=== PATIENT | female | born 1965 | race Caucasian/White ===

== ENCOUNTER → 2024-01-07 11:19 | Outpatient (REF) | payer OTHER, SELFPAY | LOC: WDC 11:19 | PROVIDERS: ATTENDING PHYSICIAN Internal Medicine | DX: Z12.31 Encounter for screening mammogram for malignant neoplasm of breast (principal) | CPT/HCPCS: 77063; 77067 ==

== ENCOUNTER → 2024-02-12 06:17 | Day surgery (SDC) | payer OTHER, SELFPAY | LOC: GI 06:17 | PROVIDERS: ATTENDING PHYSICIAN Internal Medicine Gastroenterology; FAMILY PHYSICIAN Internal Medicine | DX: Z12.11 Encounter for screening for malignant neoplasm of colon (principal); K57.30 Diverticulosis of large intestine without perforation or abscess without bleeding; D12.3 Benign neoplasm of transverse colon; D12.0 Benign neoplasm of cecum; D12.4 Benign neoplasm of descending colon; D12.5 Benign neoplasm of sigmoid colon; D12.8 Benign neoplasm of rectum; D12.2 Benign neoplasm of ascending colon | CPT/HCPCS: 45385; 88305 ==

== ENCOUNTER → 2024-11-18 07:16 | Outpatient (REF) | payer OTHER, SELFPAY | LOC: RAD 07:16 | PROVIDERS: ATTENDING PHYSICIAN Internal Medicine | DX: R74.8 Abnormal levels of other serum enzymes (principal) | CPT/HCPCS: 76700 ==

== ENCOUNTER → 2025-01-12 10:49 | Outpatient (REF) | payer OTHER, SELFPAY | LOC: WDC 10:49 | PROVIDERS: ATTENDING PHYSICIAN Radiology Radiation Oncology; FAMILY PHYSICIAN Internal Medicine | DX: Z12.31 Encounter for screening mammogram for malignant neoplasm of breast (principal); Z85.3 Personal history of malignant neoplasm of breast | CPT/HCPCS: 77063; 77067 ==

== ENCOUNTER → 2025-01-26 09:13 | Outpatient (REF) | payer OTHER, SELFPAY | LOC: RAD 09:13 | PROVIDERS: ATTENDING PHYSICIAN Student in an Organized Health Care Education/Training Program; FAMILY PHYSICIAN Internal Medicine; REFERRING PHYSICIAN Student in an Organized Health Care Education/Training Program | DX: C50.811 Malignant neoplasm of overlapping sites of right female breast (principal); Z17.0 Estrogen receptor positive status [ER+] | CPT/HCPCS: 77080 ==

== ENCOUNTER 2025-02-07 06:23 | Day surgery (SDC) | payer OTHER, SELFPAY | END 2025-02-07 12:17 | disposition home or self-care (01) | LOC: GI 06:23 | PROVIDERS: ATTENDING PHYSICIAN Internal Medicine Gastroenterology; FAMILY PHYSICIAN Internal Medicine | DX: Z09 Encounter for follow-up examination after completed treatment for conditions other than malignant neoplasm (principal); K57.30 Diverticulosis of large intestine without perforation or abscess without bleeding; D12.5 Benign neoplasm of sigmoid colon; D12.0 Benign neoplasm of cecum; D12.2 Benign neoplasm of ascending colon; Z86.0101 Personal history of adenomatous and serrated colon polyps | CPT/HCPCS: 45385; 88305 ==

== ENCOUNTER → 2025-03-04 10:44 | Outpatient (REF) | payer OTHER, SELFPAY | LOC: WDC 10:44 | PROVIDERS: ATTENDING PHYSICIAN Radiology Radiation Oncology; FAMILY PHYSICIAN Internal Medicine | DX: R92.2 Inconclusive mammogram (principal) | CPT/HCPCS: 76641 ==

== ENCOUNTER → 2025-03-30 15:47 | Outpatient (REF) | payer OTHER, SELFPAY | LOC: RAD 15:47 | PROVIDERS: ATTENDING PHYSICIAN Student in an Organized Health Care Education/Training Program; FAMILY PHYSICIAN Internal Medicine | DX: R31.0 Gross hematuria (principal); N20.0 Calculus of kidney; R74.8 Abnormal levels of other serum enzymes; R76.8 Other specified abnormal immunological findings in serum; Z71.2 Person consulting for explanation of examination or test findings; R80.9 Proteinuria, unspecified; Z85.3 Personal history of malignant neoplasm of breast | CPT/HCPCS: 76770 ==

== ENCOUNTER 2025-04-12 07:18 | Outpatient (REF) | payer OTHER, SELFPAY ==
[2025-04-12] VITALS (9 sets, daily range): BP systolic 87–148; BP diastolic 66–93
[2025-04-12 07:55] LABS: Hemoglobin 11.2 g/dL (12.0-16.0); Mean Corp Hgb Conc. 32.9 g/dL (33.0-37.0); Mean Corpuscular Hgb 31.3 pg (27.0-31.0); Mean Platelet Volume 8.7 fL (7.4-10.4); Platelet Count 284 10^3/uL (130-400); Red Blood Cell Count 3.58 10^6/uL (4.20-5.40); Red Cell Dist. Width 14.8 % (11.5-14.5); White Blood Cell Count 5.2 10^3/uL (4.8-10.8)
[2025-04-12 08:00] LABS: INR 1.01; PT 13.6 Sec (11.4-14.6)
[2025-04-12 08:10] LABS: % Basophils 0.6 % (0-2); % Eosinophils 1.7 % (0-6); % Immature Granulocytes 0.2 % (0-0.5); % Lymphocytes 50.4 % (20.5-51.1); % Monocytes 7.5 % (1.7-9.3); % Neutrophils 39.6 % (42.2-75.2); Absolute Eosinophils 0.1 10^3/uL (0-0.7); Absolute Lymphocytes 2.6 10^3/uL (1.2-3.4); Absolute Monocytes 0.4 10^3/uL (0.1-0.6); Absolute Neutrophils 2.1 10^3/uL (1.4-6.5); Nucleated Red Blood Cells % 0 %
[2025-04-12 08:13] LABS: Blood Urea Nitrogen 17 mg/dl (7-17); Calcium 10.1 mg/dl (8.4-10.2); Carbon Dioxide 26 mmol/L (22-30); Chloride 109 mmol/L (98-107); Glucose 111 mg/dl (70-99); Potassium 4.6 mmol/L (3.5-5.1); Sodium 144 mmol/L (135-145); eGFR > 60.00
[2025-04-12 14:06] LABS: Hematocrit 30.9 % (37.0-47.0); Hemoglobin 10.1 g/dL (12.0-16.0)
== END 2025-04-12 15:00 | disposition home or self-care (01) ==
LOC: RADI 07:18
PROVIDERS: Physician Assistant; Radiology Diagnostic Radiology; ATTENDING PHYSICIAN Internal Medicine Nephrology; FAMILY PHYSICIAN Internal Medicine
DX: R80.9 Proteinuria, unspecified (principal); N28.89 Other specified disorders of kidney and ureter; Z85.3 Personal history of malignant neoplasm of breast; D68.8 Other specified coagulation defects
CPT/HCPCS: 36415; 50200; 76942; 80048; 85014; 85018; 85025; 85610; 99152; 99153

== ENCOUNTER → 2025-07-27 08:52 | Outpatient (REF) | payer OTHER, SELFPAY | LOC: HWRAD 08:52 | PROVIDERS: ATTENDING PHYSICIAN Internal Medicine | DX: R79.89 Other specified abnormal findings of blood chemistry (principal); R11.0 Nausea; K80.80 Other cholelithiasis without obstruction | CPT/HCPCS: 76700 ==

== ENCOUNTER → 2025-08-04 16:45 | Outpatient (REF) | payer OTHER, SELFPAY | LOC: RAD 16:45 | PROVIDERS: ATTENDING PHYSICIAN Internal Medicine | DX: R18.8 Other ascites (principal) | CPT/HCPCS: 74177; Q9967 ==

== ENCOUNTER → 2025-08-15 10:54 | Outpatient (REF) | payer OTHER, SELFPAY ==
[2025-08-15 11:03] VITALS: BP 122/80; BP_SYST 114
[2025-08-15 11:33] VITALS: BP 101/73; BP_SYST 95
[2025-08-15 13:41] LABS: Body Fluid Second Tech HB
== END ==
LOC: RADI 10:54
PROVIDERS: FAMILY PHYSICIAN Internal Medicine
DX: C50.919 Malignant neoplasm of unspecified site of unspecified female breast (principal); R18.0 Malignant ascites
CPT/HCPCS: 49083; 88112; 88305; 88341; 88342; 88360; 89051

== ENCOUNTER → 2025-08-22 10:57 | Outpatient (REF) | payer OTHER, SELFPAY ==
[2025-08-22 11:10] VITALS: BP 102/68; BP_SYST 99
[2025-08-22 12:00] VITALS: BP 99/64; BP_SYST 83
[2025-08-22 12:10] VITALS: BP 99/64
[2025-08-22 13:27] LABS: Body Fluid Second Tech CMB
== END ==
LOC: RADI 10:57
PROVIDERS: FAMILY PHYSICIAN Internal Medicine
DX: R18.8 Other ascites (principal); Z85.3 Personal history of malignant neoplasm of breast
CPT/HCPCS: 49083; 89051

== ENCOUNTER → 2025-08-29 11:08 | Outpatient (REF) | payer OTHER, SELFPAY ==
[2025-08-29 11:20] VITALS: BP 117/87; BP_SYST 111
[2025-08-29 11:50] VITALS: BP 113/78
[2025-08-29 12:49] LABS: Body Fluid Second Tech CF
== END ==
LOC: RADI 11:08
PROVIDERS: FAMILY PHYSICIAN Internal Medicine
DX: R18.8 Other ascites (principal)
CPT/HCPCS: 49083; 89051

== ENCOUNTER → 2025-09-05 10:42 | Outpatient (REF) | payer OTHER, SELFPAY ==
[2025-09-05 10:55] VITALS: BP 95/82; BP_SYST 110
[2025-09-05 11:37] VITALS: BP 103/66
[2025-09-05 12:57] LABS: Body Fluid Second Tech HB
== END ==
LOC: RADI 10:42
PROVIDERS: FAMILY PHYSICIAN Internal Medicine
DX: R18.8 Other ascites (principal)
CPT/HCPCS: 49083; 89051

== ENCOUNTER → 2025-09-09 10:50 | Outpatient (REF) | payer OTHER, SELFPAY ==
[2025-09-09 11:06] VITALS: BP 97/70; BP_SYST 110
[2025-09-09 11:20] VITALS: BP 104/68; BP_SYST 100
[2025-09-09 12:13] LABS: Body Fluid Second Tech EM
== END ==
LOC: RADI 10:50
PROVIDERS: FAMILY PHYSICIAN Internal Medicine
DX: C80.1 Malignant (primary) neoplasm, unspecified (principal); R18.0 Malignant ascites
CPT/HCPCS: 49083; 89051

== ENCOUNTER 2025-09-13 16:56 | Emergency (ER) | payer OTHER, SELFPAY ==
[2025-09-13] VITALS (14 sets, daily range): BP systolic 79–189; BP diastolic 53–91; BMI 22.4
[2025-09-13 17:44] LABS: Hematocrit 36.6 % (37.0-47.0); Hemoglobin 11.8 g/dL (12.0-16.0); Mean Corp Hgb Conc. 32.2 g/dL (33.0-37.0); Mean Corpuscular Volume 101.1 fL (81.0-99.0); Nucleated Red Blood Cells % 0.6 %; Platelet Count 320 10^3/uL (130-400); Red Cell Dist. Width 15.8 % (11.5-14.5)
--- NOTE | 2025-09-13 17:51 | ED.GENMED ---
History of Present Illness
General
Chief Complaint: Abdominal Symptoms
Time Seen by Provider: 09/13/25 17:36
History of Present Illness
History of Present Illness:
Patient is a 60-year-old woman with history of metastatic breast cancer with mets to the peritoneum and spine presenting to the emergency department with abdominal pain. Patient states that she is on Verzenio for the past 8 days. It is a known
side effect to have nausea. She did have persistent nausea as well as decreased p.o. Today developed evaluate abdominal pain as well as shortness of breath and some pleuritic chest pain. No fevers chills. No cough. She does feel slightly
lightheaded dizzy. While she was being brought to the emergency department she did fall hitting her head. She did not pass out. She is not on a blood thinner.
Phy Exam
Physical Exam
Physical Exam:
GENERAL: Appears unwell
HEENT: Bruising to the left zygomatic arch normocephalic, extraocular movements intact, dry oral mucosa
NECK: normal inspection
RESPIRATORY: Tachypneic clear to auscultation bilaterally
CARDIOVASCULAR: regular rate and rhythm
ABDOMEN/: Diffusely tender, no rebound or guarding
EXTREMITIES: non-tender, no edema/swelling
NEUROLOGIC: awake and alert, moves all extremities
SKIN: warm
Course
Orders/Labs/Results
Orders:
Orders
09/13/25 17:05
EKG [Electrocardiogram (*1)] Urgent
Reason for Study: Tachycardia
EKG- Treatment ONCE
09/13/25 17:33
CBC/With Diff [Complete Blood Count/With Diff] Urgent
CMP [Comprehensive Metabolic Panel] Urgent
Lipase Urgent
09/13/25 17:51
CT Head W/o Iv Contrast Urgent
Comment:
Reason For Exam: fall
CT Pe/abd/pel W Urgent
Reason For Exam: hypotensive, tachycardia, lugn cancer
09/13/25 18:42
Electrocardiogram (*1) Urgent
Reason for Study: Other
Other Reason for Exam: hyperk
EKG- Treatment ONCE
Dextrose 50%-Water [Dextrose 50% Syringe] 12.5 grams IV [id number] PRN
Dextrose 50%-Water [Dextrose 50% Syringe] 25 grams IV NOW STA
Insulin Human Regular [Novolin R] 5 units IV NOW STA
Sodium Bicarbonate 50 meq IV NOW STA
Sodium Zirconium Cyclosilicate [Lokelma] 10 gram PO NOW STA
09/13/25 18:43
Bedside Glucose PRE IV Insulin- HyperK+ NOW
09/13/25 18:58
0.9% Sodium Chloride 1000 ml [Nss] 1,000 ml IV BOLUS
09/13/25 19:36
CT Cervical Spine W/o Iv Contr Urgent
Comment:
Reason For Exam: fall
09/13/25 19:44
Azithromycin 500 mg/250 ml [Zithromax Infusion] 500 mg in 250 ml IV NOW
Cefepime HCl [Maxipime] 2,000 mg IV NOW STA
09/13/25 20:13
Bedside Glucose POST IV Insulin- HyperK+ Q1HX2,Q2HX2
09/13/25 20:14
CT Head W/o Iv Contrast Urgent
Comment:
Reason For Exam: SDH, new word finding difficulty
09/13/25 20:45
0.9% Sodium Chloride 1000 ml [Nss] 1,000 ml IV BOLUS
09/13/25 21:13
Potassium Urgent
Comment: draw 2 hours after regular insulin IV administration
09/13/25 23:13
Potassium Urgent
Comment: draw 4 hours after Lokelma administered
Abnormal Lab Results
09/13/25 09/13/25 09/13/25
17:33 19:10 20:12
RBC 3.62 L 10^6/uL
(4.20-5.40)
Hgb 11.8 L g/dL
(12.0-16.0)
Hct 36.6 L %
(37.0-47.0)
MCV 101.1 H fL
(81.0-99.0)
MCH 32.6 H pg
(27.0-31.0)
MCHC 32.2 L g/dL
(33.0-37.0)
RDW 15.8 H %
(11.5-14.5)
Absolute Lymphs (auto) 0.5 L 10^3/uL
(1.2-3.4)
Neutrophils % 87.9 H %
(42.2-75.2)
Lymphocytes % 10.1 L %
(20.5-51.1)
Monocytes % 1.4 L %
(1.7-9.3)
Sodium 118 L* mmol/L
(135-145)
Potassium 6.1 H* mmol/L
(3.5-5.1)
Chloride 84 L mmol/L
(98-107)
BUN 77 H mg/dl
(7-17)
Creatinine 3.3 H mg/dL
(0.6-1.0)
Glucose 178 H mg/dl
(70-99)
Calcium 8.3 L mg/dl
(8.4-10.2)
AST 80 H U/L
(14-36)
Alkaline Phosphatase 169 H U/L
(38-126)
Total Protein 5.7 L g/dl
(6.3-8.2)
Albumin 3.1 L g/dl
(3.5-5.0)
POC Glucose 134 H mg/dl 150 H mg/dl
(70-99) (70-99)
09/13/25 17:33
Vital Signs
Initial and Last Documented VS:
Initial Vital Signs
Temp Pulse Resp Pulse Ox
97.2 F 114 22 98
09/13/25 17:01 09/13/25 17:01 09/13/25 17:01 09/13/25 17:01
Last Documented Vital Signs
Temp Pulse Resp BP Pulse Ox
98.2 F 111 22 92/54 100
09/13/25 19:42 09/13/25 20:30 09/13/25 20:30 09/13/25 20:30 09/13/25 20:35
MDM/Problems Addressed
Differential Diagnosis Includes:
Patient is a 60-year-old woman with history of stage IV breast cancer with mets to the spine and peritoneum presenting to the emergency department with abdominal pain, decreased p.o., nausea and a fall. On arrival patient is hypotensive
tachycardic. She is also tachypneic. On my evaluation patient with bruising to the left zygomatic arch, clear breath sounds and diffusely distended abdomen. Differential is broad but consists of PE, worsening malignancy, obstruction, dehydration,
traumatic intracranial injury. Will proceed with blood work EKG CT scan of the head chest abdomen pelvis. Will give IV fluids
*Pulse Oximetry
SaO2: 98
Oxygen Mode of Delivery: Room air
Update Note
Update Note:
Blood work notable for hyponatremia, hyperkalemia, HUNG. I discussed with nephrology given hyponatremia. In agreement that is due to dehydration and continue fluid recitation with normal saline. No role for hypertonic. Will give hyperkalemia
protocol. No peaked T waves on EKG per my interpretation so we will hold off on calcium. Received a critical call from radiology regarding patient CT scan. Per my interpretation consistent with a [address] chest abdomen pelvis
negative for PE. Possible pneumonia versus radiation fibrosis. She did have radiation many years ago. However patient does have a mild cough. Will err on the side of caution and give antibiotics. CT of the abdomen pelvis consistent with omental
caking/metastatic disease. I did discuss with [facility] torres who excepted patient to their service. Patient will be a trauma activation upon arrival.
Called into room as patient with some word finding difficulty. Accu-Chek was normal. Will send patient straight to CT scan to make sure that the hematoma has not changed. Patient's at bedside does state that last time she had high
potassium she did have similar complaints.
CT scan with no acute changes. On reevaluation symptoms have resolved. Patient pending transport to [place].
ED Attending Note
-
Portions of this chart may have been created with voice recognition software.� Occasional wrong word or��sound alike� substitutions may have occurred due to the inherent limitations of voice recognition software.
Discharge Plan
Departure
Patient Disposition: Acute Care Hospital
Date of Disposition: 09/13/25
Time of Disposition: 19:44
Discharge Problem:
Subdural hematoma, Hyponatremia
Prescriptions:
No Action
cetirizine 10 MG tablet
10 mg PO DAILY
fluticasone propionate 1 SPRAY spray,suspension
1 spray intranasal DAILY
eszopiclone [Lunesta] 3 MG tablet
3 mg PO HS
acetaminophen [Tylenol Extra Strength] 500 MG tablet
1,000 mg PO Q6 PRN (Reason: Mild pain) Qty: 60 1RF
Rx Instructions:
Limit daily intake to less than 4g over 24 hours.
diazepam 5 MG tablet
5 mg PO TIDPRN PRN (Reason: Muscle Spasm, anxiety ) 0RF
anastrozole 1 mg Tablet
1 mg PO DAILY
Referrals:
Bruna aMck MD [Family Provider, Internal Medicine]
Hospital Transfer
Other hospital: [facility]
I certify that the patient requires transfer: Yes
Discussed case with accepting physician: cortez
Reason for transfer: higher level of care and specialties available
Interventions
Interventions:
*Risk Screen - Suicide Last Done: 09/13/25 17:01
*General Assessment Last Done: 09/13/25 17:01
*Neglect/Abuse Screening Last Done: 09/13/25 17:01
*ED COVID-19 Vaccine History Last Done: 09/13/25 17:01
*ED Influenza Vaccine History Last Done: 09/13/25 17:01
BW-Lbdvlj-Murkqcuofr Assessment Last Done: 09/13/25 18:04
Discharge Date and Time
Print Language: MICRONESIAN
[2025-09-13] MEDS: NSS 1000 IV ×2 (18:00→20:45)
[2025-09-13 18:16] LABS: ALT (SGPT) 31 U/L (0-35); AST (SGOT) 80 U/L (14-36); Albumin 3.1 g/dl (3.5-5.0); Alkaline Phosphatase 169 U/L (38-126); Blood Urea Nitrogen 77 mg/dl (7-17); Calcium 8.3 mg/dl (8.4-10.2); Carbon Dioxide 23 mmol/L (22-30); Chloride 84 mmol/L (98-107); Estimated Creatinine Clearance 17 ml/min; Glucose 178 mg/dl (70-99); Lipase 117 U/L (23-300); Potassium 6.1 mmol/L (3.5-5.1); Sodium 118 mmol/L (135-145); Total Protein 5.7 g/dl (6.3-8.2); eGFR 15.49
[2025-09-13] MEDS: DEXTROSE 50% SYRINGE 25 GRAMS IV (19:09)
[2025-09-13] MEDS: NOVOLIN R 5 UNITS IV (19:10)
[2025-09-13 19:11] LABS: Glucose - Point of Care 134 mg/dl (70-99)
[2025-09-13] MEDS: SODIUM BICARBONATE 50 MEQ IV (19:14)
[2025-09-13] MEDS: ZITHROMAX INFUSION 250 IV (19:57)
[2025-09-13] MEDS: MAXIPIME 2000 MG IV (19:57)
[2025-09-13 20:14] LABS: Glucose - Point of Care 150 mg/dl (70-99)
[2025-09-13 21:33] LABS: Glucose - Point of Care 116 mg/dl (70-99)
[2025-09-13 21:40] LABS: Potassium 4.2 mmol/L (3.5-5.1)
== END 2025-09-13 22:39 | disposition short-term general hospital (02) ==
LOC: EMR 16:56
PROVIDERS: EMERGENCY PHYSICIAN Student in an Organized Health Care Education/Training Program; FAMILY PHYSICIAN Internal Medicine
DX: S06.5X0A Traumatic subdural hemorrhage without loss of consciousness, initial encounter (principal); W19.XXXA Unspecified fall, initial encounter; E87.1 Hypo-osmolality and hyponatremia; E87.5 Hyperkalemia; N17.9 Acute kidney failure, unspecified; E86.0 Dehydration; C50.919 Malignant neoplasm of unspecified site of unspecified female breast; C78.6 Secondary malignant neoplasm of retroperitoneum and peritoneum; C79.51 Secondary malignant neoplasm of bone
CPT/HCPCS: 99284; 96365; 96375 ×4; 96361 ×2; 70450; 71275; 72125; 74177; 80053; 82962; 83690; 84132; 85025; 93005; Q9967